=== PATIENT | female | born 2000 | race Caucasian/White ===

== ENCOUNTER 2019-05-24 10:29 | Emergency (ER) | payer SELFPAY ==
[~2019-05-24] VITALS: Ht 147.3 cm; Wt 63.2 kg
[2019-05-24 10:43] VITALS: BP 123/90
== END 2019-05-24 11:48 | disposition home or self-care (01) ==
LOC: EMS 10:31
DX: S61.235A Puncture wound without foreign body of left ring finger without damage to nail, initial encounter (principal); W27.8XXA Contact with other nonpowered hand tool, initial encounter; Y93.89 Activity, other specified; Y92.89 Other specified places as the place of occurrence of the external cause; Y99.0 Civilian activity done for income or pay